=== PATIENT | male | born 1970 | race Caucasian/White ===

== ENCOUNTER 2018-04-19 18:13 | Emergency (ER) | payer OTHER ==
--- NOTE | 2018-04-19 18:27 | EDPHY ---
H & P Stated Complaint: Exacerbation of pinched nerve problem x 3wks;meds not helping Time Seen by Provider: 04/19/18 18:26 HPI/ROS: HPI: This is a 47-year-old male who presents with Chief Complaint: Exacerbation of pinched nerve problem x 3wks;meds not helping Location: Lower back Quality: Pain Duration: 3 weeks Signs and Symptoms: No bleeding, + left radiation from lower back into left foot, no numbness, no weakness, no tingling, no incontinence, + decreased range of motion, no swelling, + pain, no fever Timing: Acute on chronic Severity: Moderate to severe Context: Patient has a history of L4-L5"pinched nerve"that was diagnosed in 2009 with"flare-ups in 2011, 2016, 2017, 2018 presents with complaints of exacerbation of"pinched nerve problem"x3 weeks. He reports radiation from his left lower back down the posterior leg down into his foot. He reports that pain is worsened with flexion and extension of spine. He is ambulatory with shows slow shuffling gait. He believes that he may have injured himself while playing kickball and participating in [employer] 3 weeks ago. Patient has been taking diclofenac, Flexeril, Tylenol without any improvement. He has an appointment next Thursday with his primary care provider. Denies any change in bowel or bladder habits. Modifying Factors: See above Comment: ROS: A comprehensive 10 system review of systems is otherwise negative aside from elements mentioned in the history of present illness. MEDICAL/SURGICAL/SOCIAL HISTORY: Medical history: L4-L5"pinched nerve" Surgical history: Denies Social history: Never smoked, . CONSTITUTIONAL: Polite and cooperative physically fit middle-aged white male, awake and alert, no obvious distress HEENT: Atraumatic and normocephalic. Wears glasses. NECK: supple BACK: No midline tenderness, no paraspinous spasm, deep tendon reflexes 2/2, moderate pain with left straight leg raise, no pain with right straight leg raise, No foot drop. Achilles reflexes are equal bilaterally. Able to walk on heels and toes without difficulty. Decreased flexion, extension and bilateral rotation secondary to pain. EXTREMITIES: 2/2 pulses, strength 5/5, good light touch sensation. no deformities, no clubbing, no cyanosis or edema. NEUROLOGICAL: no focal neuro deficits. GCS 15. Light touch sensation intact. SKIN: Warm and dry, no erythema. no rash. Good capillary refill. Source: Patient Exam Limitations: No limitations - Personal History Current Tetanus Diphtheria and Acellular Pertussis (TDAP): Unsure - Medical/Surgical History Other PMH: L4-5 pinched nerve - Social History Smoking Status: Never smoked Constitutional: Initial Vital Signs Temperature (C) 37.1 C 04/19/18 18:18 Heart Rate 94 04/19/18 18:18 Respiratory Rate 16 04/19/18 18:18 Blood Pressure 144/100 H 04/19/18 18:18 O2 Sat (%) 97 04/19/18 18:18 O2 Delivery Mode Room Air Allergies/Adverse Reactions: No Known Allergies Allergy (Unverified 04/19/18 18:18) Home Medications: Medication Instructions Recorded Acetaminophen [Tylenol] 325 mg PO 04/19/18 Cyclobenzaprine [Flexeril 10 MG 10 mg PO 04/19/18 (*)] Diazepam [Valium 5 MG (*)] 5 mg PO Q8 PRN #12 tab 04/19/18 Diclofenac Sodium [Voltaren 50 MG 50 mg PO BID 04/19/18 (*)] methylPREDNISolone [Medrol Dose 1 each PO AD #0 ea 04/19/18 Tien] oxyCODONE/APAP 5/325 [Percocet 1 - 2 tab PO Q4H PRN #10 tab 04/19/18 5/325 (*)] Medical Decision Making ED Course/Re-evaluation: Vital signs reviewed and stable upon arrival. Offered patient imaging of his lower back and he politely declined as last MRI performed 1-2 years ago and symptoms are similar to prior exacerbations. No neurological deficits to warrant emergent MRI in the emergency room. Patient has close follow-up with his primary care provider on Thursday. IV access obtained and given IV Decadron 2 mg, IV Toradol 15 mg, IV Valium 5 mg , and p.o. Gabapentin 1954: Walked to the bathroom with no assistance. at bedside and updated on plan. Patient will be discharged home with Medrol Dosepak, Valium to replace Flexeril and small amount of Percocet No signs of neurovascular compromise/tenting of skin/compartment syndrome/ extremities and joints examined above and below area of concern and are neurovascularly intact cauda equina syndrome/diskitis/epidural hematoma. This patient was seen under the supervision of my secondary supervising physician. I evaluated care for this patient independently. Discussed this patient with Dr. Bowens. Differential Diagnosis: Back pain including but not limited to muscular pain, herniated disc, spine fracture, intra-abdominal causes and urinary tract infection. 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 Take Percocet every 4-6 hours as needed for severe or breakthrough pain. Do not take Tylenol and Percocet at the same time. Use Valium every 6 hours as needed for muscle spasm. Take Medrol Dosepak as directed. Keep follow-up appointment with primary care provider. If symptoms worsen, it is recommended that you obtain an MRI outpatient follow- up with Neurosurgery. Return to the ER immediately if you have new or worsening back pain, fevers/ chills, flu like symptoms, incontinence or inability to urinate or defecate, weakness, paralysis, or any other symptom that concerns you Referrals: STEW ORDONEZ MD [Primary Care Provider] - As per Instructions Prescriptions: Diazepam [Valium 5 MG (*)] 5 mg PO Q8 PRN #12 tab PRN Reason: Spasms methylPREDNISolone [Medrol Dose Tien] 1 each PO AD #0 ea oxyCODONE/APAP 325 [Percocet 5/325 (*)] 1 - 2 tab PO Q4H PRN #10 tab PRN Reason: Pain, Severe
[2018-04-19] MEDS ORDERED: DIAZEPAM 5 MG/ML 1 ML SYR IVP ONE (18:32)
[2018-04-19] MEDS ORDERED: GABAPENTIN 300 MG CAP PO ONE (18:32)
[2018-04-19] MEDS ORDERED: KETOROLAC 15 MG/1 ML SDV IVP ONE (18:32)
[2018-04-19] MEDS ORDERED: DEXAMETHASONE 4 MG/ML VIAL IVP ONE (18:32)
[2018-04-19 20:50] VITALS: BP 136/92
== END 2018-04-19 20:49 | disposition home or self-care (01) ==
DX: M54.9 Dorsalgia, unspecified (principal); M54.16 Radiculopathy, lumbar region
CPT/HCPCS: 96374; J1100; J1885; J2270; J3360